=== PATIENT | male | born 1965 | race Two or more races ===

== ENCOUNTER 2020-10-06 11:58 | Emergency (ER) | payer MEDICAID ==
[~2020-10-06] VITALS: Ht 177.8 cm; Wt 90.0 kg
[2020-10-06 12:03] VITALS: BP 96/59
== END 2020-10-06 19:06 | disposition left against medical advice (07) ==
LOC: ER 12:59
DX: Z53.21 Procedure and treatment not carried out due to patient leaving prior to being seen by health care provider (principal); G40.909 Epilepsy, unspecified, not intractable, without status epilepticus; I13.0 Hypertensive heart and chronic kidney disease with heart failure and stage 1 through stage 4 chronic kidney disease, or unspecified chronic kidney disease; I50.9 Heart failure, unspecified; E11.22 Type 2 diabetes mellitus with diabetic chronic kidney disease; N18.9 Chronic kidney disease, unspecified
CPT/HCPCS: 93005

== ENCOUNTER 2022-06-18 13:26 | Emergency (ER) | payer OTHER ==
[~2022-06-18] VITALS: Ht 177.8 cm; Wt 95.0 kg
[2022-06-18] MEDS ORDERED: ACETAMINOPHEN 325MG TABLET PO ONE (14:00)
[2022-06-18 15:54] LABS: BASOPHILS % 0.5 % (0.0-2.0); EOSINOPHILS % 2.6 % (0.0-5.0); HEMATOCRIT. 26.7 % (42.0-52.0); HEMOGLOBIN. 8.2 g/dL (14.0-18.0); LYMPHOCYTES % 15.9 % (20.0-50.0); MEAN CORPUSCULAR HEMOGLOBIN 17.7 pg (28.0-32.0); MEAN CORPUSCULAR VOLUME 57.8 fL (80.0-94.0); MEAN PLATELET VOLUME 8.6 fl (7.4-10.4); MONOCYTES % 7.3 % (2.0-8.0); NEUTROPHILS % 73.7 % (40.0-76.0); PLATELET 263 x1000/uL (130-400); RED BLOOD CELL COUNT 4.61 mill/uL (4.7-6.1); RED CELL DISTRIBUTION WIDTH 19.5 % (11.6-14.6)
[2022-06-18 16:32] VITALS: BP 132/79
[2022-06-18 16:43] LABS: PLATELET ESTIMATE NORMAL
== END 2022-06-18 16:33 | disposition home or self-care (01) ==
LOC: ER 13:26
DX: M25.561 Pain in right knee (principal); D50.0 Iron deficiency anemia secondary to blood loss (chronic); N18.9 Chronic kidney disease, unspecified; M25.512 Pain in left shoulder; I50.9 Heart failure, unspecified
CPT/HCPCS: 36415; 73030; 73560; 73590; 80048; 85025; 99284

== ENCOUNTER 2023-06-01 10:31 | Inpatient (IN) | payer MEDICAID, OTHER ==
[~2023-06-01] VITALS: Ht 177.8 cm; Wt 89.8 kg
[2023-06-01 11:04] LABS: HEMATOCRIT. 28.3 % (42.0-52.0); HEMOGLOBIN. 8.6 g/dL (14.0-18.0); MEAN CORPUSCULAR HEMOGLOBIN 18.1 pg (28.0-32.0); MEAN CORPUSCULAR HGB CONC 30.2 g/dL (31.0-37.0); MEAN CORPUSCULAR VOLUME 59.7 fL (80.0-94.0); RED BLOOD CELL COUNT 4.74 mill/uL (4.7-6.1); RED CELL DISTRIBUTION WIDTH 21.4 % (11.6-14.6); WHITE BLOOD COUNT 7.5 x1000/uL (4.5-11.0)
[2023-06-01 11:13] LABS: DIFFERENTIAL COMMENT 1
[2023-06-01 11:19] LABS: ALANINE AMINOTRANSFERASE 21 IU/L (10-49); ALBUMIN 4.3 g/dL (3.2-4.8); ASPARTATE AMINOTRANSFERASE 29 IU/L (<34); BILIRUBIN TOTAL 1.6 mg/dL (0.1-1.0); CALCIUM 8.7 mg/dL (8.7-10.4); CARBON DIOXIDE 20 mEq/L (21-32); CHLORIDE 105 mEq/L (98-107); GLUCOSE 216 mg/dL (70-105); PROTEIN TOTAL 7.3 g/dL (6.0-8.3); SODIUM 136 mEq/L (136-145); UREA NITROGEN BLOOD 52 mg/dL (9-23)
[2023-06-01 12:02] LABS: INR 1.1; PROTHROMBIN TIME 11.9 sec (9.6-11.0)
[2023-06-01 12:07] LABS: TROPONIN I HIGH SENSITIVITY 23 ng/L (3.0-53)
[2023-06-01 12:22] LABS: HYPOCHROMASIA 1+; NUCLEATED RED BLOOD CELLS 1 /100 WBC
[2023-06-01 12:27] LABS: ANISOCYTOSIS 3+
[2023-06-01 12:28] LABS: MICROCYTOSIS 3+
[2023-06-01 12:31] LABS: PLATELET ESTIMATE NORMAL
[2023-06-01 12:32] LABS: PLATELET 157 x1000/uL (130-400)
[2023-06-01 14:17] LABS: TROPONIN I HIGH SENSITIVITY 23 ng/L (3.0-53)
[2023-06-01] MEDS ORDERED: CEFEPIME 1GM IN DEXT 5% 50ML IV ONE (14:45)
[2023-06-01] MEDS: VANCOMYCIN 1G PREMIX 200 ML IV SCH (15:50)
[2023-06-01] MEDS ORDERED: CEFEPIME 1GM/50ML 50 ML IV NR (16:00)
[2023-06-01 18:00] VITALS: BP 180/84; PULSE 88; RESP 18; TEMP 98.4
[2023-06-01] MEDS ORDERED: ONDANSETRON HCL 4MG/2ML INJ IV PRN (18:30)
[2023-06-01 19:02] VITALS: BP 157/78; PULSE 81; RESP 18; TEMP 97.6
[2023-06-01 19:05] VITALS: BP 157/78
[2023-06-01 20:00] VITALS: BP 143/63; PULSE 68; RESP 19; TEMP 98.4
[2023-06-01] MEDS: CEFTRIAXONE 1GM/50ML 50 ML IV SCH (20:31)
[2023-06-02] VITALS: BP 116/60; PULSE 66; RESP 18; TEMP 97.6
[2023-06-02 04:00] VITALS: BP 151/70; PULSE 70; RESP 19; TEMP 97.8
[2023-06-02 08:00] VITALS: BP 157/99; PULSE 86; RESP 18; TEMP 99.1
[2023-06-02 12:00] VITALS: BP 155/62; PULSE 92; RESP 18; TEMP 98.1
[2023-06-02 15:44] LABS: CLARITY URINE CLEAR (CLEAR); COLOR URINE YELLOW (YELLOW); GLUCOSE URINE TRACE (NEGATIVE); KETONES URINE NEGATIVE (NEGATIVE); LEUKOCYTE ESTERASE URINE NEGATIVE (NEGATIVE); NITRITE URINE NEGATIVE (NEGATIVE); OCCULT BLOOD URINE NEGATIVE (NEGATIVE); PROTEIN URINE 2+ (NEGATIVE); SPECIFIC GRAVITY URINE 1.013 (1.005-1.030); UROBILINOGEN URINE 0.2 E.U./dL (0.2-1.0)
[2023-06-02 16:00] VITALS: BP 172/92; PULSE 99; RESP 18; TEMP 97.8
[2023-06-02 16:37] LABS: SQUAMOUS EPITHELIAL CELL URINE RARE /lpf (RARE/1+)
[2023-06-02 16:38] LABS: BACTERIA URINE TRACE; FINE GRANULAR CASTS URINE 0-5 /lpf
[2023-06-02 16:46] LABS: HEMATOCRIT. 27.1 % (42.0-52.0); HEMOGLOBIN. 8.4 g/dL (14.0-18.0); MEAN CORPUSCULAR HEMOGLOBIN 18.3 pg (28.0-32.0); MEAN CORPUSCULAR HGB CONC 30.9 g/dL (31.0-37.0); MEAN CORPUSCULAR VOLUME 59.2 fL (80.0-94.0); MEAN PLATELET VOLUME 9.1 fl (7.4-10.4); PLATELET 157 x1000/uL (130-400); RED BLOOD CELL COUNT 4.57 mill/uL (4.7-6.1); RED CELL DISTRIBUTION WIDTH 20.8 % (11.6-14.6); WHITE BLOOD COUNT 7.1 x1000/uL (4.5-11.0)
[2023-06-02 16:56] LABS: CALCIUM 8.6 mg/dL (8.7-10.4); CREATININE 3.3 mg/dL (0.6-1.3); POTASSIUM 4.7 mEq/L (3.5-5.1)
[2023-06-02 17:10] LABS: DIFFERENTIAL COMMENT 1
[2023-06-02 17:56] LABS: ANISOCYTOSIS 2+; MICROCYTOSIS 3+; PLATELET ESTIMATE NORMAL
[2023-06-02 17:57] LABS: HYPOCHROMASIA 2+
[2023-06-02] MEDS: CLONIDINE 0.1MG TABLET PO PRN (18:23)
[2023-06-02] MEDS: BLOOD SUGAR DIAGNOSTIC STRIP TEST SCH (20:37)
[2023-06-02 20:45] VITALS: BP 176/92; PULSE 95; RESP 18; TEMP 99.5
[2023-06-02] MEDS ORDERED: DEXTROSE 50% WATER 50ML SYRINGE IV PRN (21:00)
[2023-06-02] MEDS: INSULIN GLARGINE 100 UNITS/ML SUBCUT SCH (21:36)
[2023-06-02] MEDS: INSULIN LISPRO 100 UNITS/ML SUBCUT SCH (21:37)
[2023-06-03 00:39] VITALS: BP 151/89; PULSE 98; RESP 18; TEMP 97
[2023-06-03] MEDS: ACETAMINOPHEN 325MG TABLET PO PRN (01:22)
[2023-06-03 04:47] VITALS: BP 137/71; PULSE 67; RESP 18; TEMP 98.8
[2023-06-03 06:17] LABS: HEMATOCRIT. 24.9 % (42.0-52.0); HEMOGLOBIN. 7.6 g/dL (14.0-18.0); MEAN CORPUSCULAR HGB CONC 30.5 g/dL (31.0-37.0); MEAN CORPUSCULAR VOLUME 59.1 fL (80.0-94.0); RED BLOOD CELL COUNT 4.21 mill/uL (4.7-6.1); RED CELL DISTRIBUTION WIDTH 20.3 % (11.6-14.6)
[2023-06-03 06:39] LABS: CALCIUM 8.3 mg/dL (8.7-10.4); CREATININE 3.1 mg/dL (0.6-1.3); POTASSIUM 4.7 mEq/L (3.5-5.1)
[2023-06-03 08:00] VITALS: BP 114/80; PULSE 65; RESP 65; TEMP 97.1
[2023-06-03] MEDS: AMLODIPINE 10MG TABLET PO SCH (08:49)
[2023-06-03 08:57] LABS: DIFFERENTIAL COMMENT 1
[2023-06-03 12:00] VITALS: BP 150/72; PULSE 93; RESP 16; TEMP 98.6
[2023-06-03 15:48] VITALS: BP 150/72; PULSE 93; TEMP 98.6; O2SAT 100
[2023-06-03 23:34] LABS: MEAN PLATELET VOLUME 9.3 fl (7.4-10.4); PLATELET 164 x1000/uL (130-400)
[2023-06-03 23:36] LABS: ANISOCYTOSIS 1+; HYPOCHROMASIA 2+; MICROCYTOSIS 3+; PLATELET ESTIMATE NORMAL
== END 2023-06-03 16:47 | disposition home or self-care (01) | DRG 347 ==
LOC: ER 10:31 → 8WST 14:08 → EDBEDREQ 14:18 → EDBEDREQTM 14:18
PROVIDERS: ADMIT Internal Medicine; ATTEND Internal Medicine
DX: M54.2 Cervicalgia (principal); E11.22 Type 2 diabetes mellitus with diabetic chronic kidney disease; D63.1 Anemia in chronic kidney disease; M25.512 Pain in left shoulder; M79.662 Pain in left lower leg; L03.116 Cellulitis of left lower limb; I12.9 Hypertensive chronic kidney disease with stage 1 through stage 4 chronic kidney disease, or unspecified chronic kidney disease; N18.9 Chronic kidney disease, unspecified; R60.0 Localized edema; R26.9 Unspecified abnormalities of gait and mobility
CPT/HCPCS: 36415; 70551; 71045; 72141; 73130; 80048; 80053; 80061; 81003; 82962; 83036; 83880; 84484; 85025; 93005; 93971; 97162; 99285; J0692; J0696; J1815; J3370